=== PATIENT | male | born 1950 | race Caucasian/White ===

== ENCOUNTER 2017-02-12 14:38 | Inpatient (IN) | payer MEDICARE, OTHER ==
--- NOTE | ~2017-02-12 | CN ---
Consultation Report [place] [id number] [facility] [place]. [address] NAME: ENRICO VYAS JR : 52 STATUS : ADM IN [facility]#: [id number] AGE: 66 ADM/REG DATE : 02/12/17 MR#: [id number] REPORT SERV DATE: 02/13/17 DICTATED BY: DATE: REPORT STATUS : Draft TRANSCRIBED BY: MODL DATE: 02/13/17 CONSULTATION DATE OF CONSULTATION: 02/13/2017 CHIEF COMPLAINT/REASON FOR CONSULT: Abnormal EKG. PRIMARY RETENTION MANAGER: Tonny Ballesteros M.D. HISTORY OF PRESENT ILLNESS: Mr. Enrico Vyas is a very pleasant 66-year-old gentleman, who underwent pxczz-pte-vswy amputation on the left on 02/12/2017, for nonhealing left foot osteomyelitis and gangrene of the heel. He was recovering postoperatively. He has suffered from acute blood loss anemia and on telemetry monitoring, he had an episode of irregular wide-complex tachycardia 11 beats in duration. The patient was not symptomatic during this episode. He denies any chest pain or shortness of breath. He states that when this episode occur people came running into his room and he was asymptomatic. His and other family members at the bedside said he was pale. PAST MEDICAL HISTORY: 1. Severe peripheral vascular disease. 2. Chronic systolic heart failure, ejection fraction of 40% to 46%. Intolerant of MARLON inhibitors and angiotensin receptor blockers due to angioedema. 3. Ischemic cardiomyopathy. 4. Coronary artery disease, status post coronary bypass grafting in November 2010. 5. Hypertension. 6. Hyperlipidemia. 7. Morbid obesity. 8. Diabetes mellitus. SOCIAL HISTORY: The patient is a former smoker, but has not smoked in many years. He rarely drinks alcohol. He does not use extracurricular drugs. FAMILY HISTORY: Noncontributory. ALLERGIES: INCLUDE NOVOCAIN AND MARLON INHIBITORS. CURRENT MEDICATIONS: Include: 1. Norvasc 10 mg p.o. daily. 2. Aspirin 81 mg p.o. daily. 3. Atorvastatin 40 mg p.o. daily. 4. Clopidogrel 75 mg p.o. daily. 5. Enoxaparin. 6. Lasix 40 mg p.o. daily. 7. Gabapentin 300 mg p.o. daily. Consultation Report [place] [id number] [facility] [place]. [address] NAME: ENRICO VYAS JR : 52 STATUS : ADM IN PAT#: [id number] AGE: 66 ADM/REG DATE : 02/12/17 MR#: [id number] REPORT SERV DATE: 02/13/17 DICTATED BY: DATE: REPORT STATUS : Draft TRANSCRIBED BY: MODJean-Paul DATE: 02/13/17 8. Insulin. 9. Toradol. 10.Robaxin. 11.Metoprolol tartrate 25 mg p.o. b.i.d. 12.Levemir. REVIEW OF SYSTEMS: Performed and is negative except for dictated in HPI. PHYSICAL EXAMINATION: VITAL SIGNS: Temperature, the patient is a currently afebrile, 98.2. Pulses ranged between 63 and 68 beats per minute, respirations 14, oxygen saturations 96% on 2 L nasal cannula, blood pressure 138/62. GENERAL: Mr. Vyas is a 66-year-old gentleman, who appears much older than his stated age. NECK: There is no jugular venous distention. No carotid bruits. HEART: Regular rate and rhythm. Soft S1, S2. I could not appreciate murmurs, rubs, or gallops. LUNGS: There are slight end expiratory wheezes in all lung cardona and diminished lung volumes bilaterally. ABDOMEN: Obese and nontender. I could not appreciate renal bruits. I could not appreciate hepatosplenomegaly due to body habitus. EXTREMITIES: There is evidence of right great toe amputation on the right. I could not appreciate pitting edema. The left is brakh-mfj-cmvu amputation which is currently wrapped in a brace. NEUROLOGIC: I could not appreciate focal neurologic deficits. DATA: Hemoglobin 7.7, hematocrit 24.1, white blood cell count 5.8, platelet count is 156. Sodium 135, potassium 4.7, BUN 32, creatinine 1.48, glucose is 114. Cardiac troponin is less than 0.02. manager drug demonstrated a regular wide-complex tachycardia. This would be consistent with atrial fibrillation with aberrant conduction versus nonsustained ventricular tachycardia. An EKG performed at 5:01 p.m. demonstrated sinus rhythm with a first-degree AV block. There was evidence of a prior inferior myocardial infarction and poor R-wave progression. IMPRESSION, REPORT AND PLAN: 1. Wide-complex tachycardia, atrial fibrillation with aberrancy versus ventricular tachycardia. 2. Ischemic cardiomyopathy, ejection fraction between 40% and 46%. 3. Known history of coronary artery disease, status post coronary artery bypass grafting. 4. Hypertension. 5. Hyperlipidemia. 6. Diabetes mellitus. 7. Peripheral vascular disease. 8. The patient is a do not resuscitate status. Consultation Report [place] [id number] [place]. [address] NAME: ENRICO VYAS JR : 52 STATUS : ADM IN PAT#: [id number] AGE: 66 ADM/REG DATE : 02/12/17 MR#: [id number] REPORT SERV DATE: 02/13/17 DICTATED BY: DATE: REPORT STATUS : Draft TRANSCRIBED BY: MODL DATE: 02/13/17 RECOMMENDATIONS: 1. I would recommend continuing aspirin, Lipitor, Plavix and metoprolol. Plavix unchanged. We would change metoprolol to succinate and increase the dose to 50 mg twice per day. 2. We would consider amiodarone for recurrent arrhythmias. It has been my pleasure to participate in his care. TIERRA/NAA Alejandra Luis M.D. / [id number] CC: DO Tonny Vazquez M.D.
--- NOTE | ~2017-02-12 | CN ---
Consultation Report [facility] [address] [place]. [address] NAME: SUJATHA MORE JR : 52 STATUS : ADM IN [facility]#: [id number] AGE: 66 ADM/REG DATE : 02/12/17 MR#: [id number] REPORT SERV DATE: 02/13/17 DICTATED BY: DATE: REPORT STATUS : Draft TRANSCRIBED BY: MODL DATE: 02/13/17 DATE OF CONSULTATION: 02/13/2017 REASON FOR CONSULTATION: Medical management. IDENTIFYING DATA: CARDIOLOGY: Dr. Tonny Ballesteros. WOUND CARE: Done with the [facility], Nhung Parker NP. HISTORY OF PRESENT ILLNESS: This is a pleasant 66-year-old male who has had a longstanding history of left foot osteomyelitis and subsequent gangrene of the heel. The patient has had multiple attempts at revascularization and debridement per Wound Care and also has had a left femoral-popliteal bypass. The patient also just came off antibiotics for a 12-week period. He has been admitted to the hospital with pre-existing PICC line. The patient also has extensive history of peripheral vascular disease as well as peripheral arterial disease. The patient has a history of diabetes x17 years and is maintained on insulin. The patient states his last A1c was 7.2 two weeks ago. Average fasting blood sugar is between 90 and 150. He only checks his blood sugar in the morning and is on no sliding scale. The patient also has a history of hypertension as well as a CABG in 2010. The patient's history was obtained through careful interview with the patient coupled with review in [employer] [facility] PAST MEDICAL HISTORY: Tobacco abuse x30 years, stopped in 2002, hypertension, high cholesterol, coronary artery disease, peripheral vascular disease, PAD, osteomyelitis of the left heel, diabetes mellitus type 2 with insulin dependency, diabetic nephropathy, left thigh abscess in 10/2016, for which he received surgery by Dr. Urbina. HOME MEDICATIONS: Lantus 12 units every morning and 60 units at bedtime, Robaxin 750 mg daily, Lopressor 25 mg twice daily, Percocet 10/325 q.6 hours p.r.n. pain, potassium chloride 10 mEq every morning, vancomycin 1 g daily IV, amlodipine 10 mg daily, aspirin 81 mg daily, Lipitor 40 mg daily, Plavix 75 mg daily, Lasix 40 mg daily, Neurontin 300 mg twice daily, and NovoLog insulin 40 units with breakfast and with supper. ALLERGIES: THE PATIENT HAS ANAPHYLAXIS WITH MARLON INHIBITORS AND NOVOCAIN. SOCIAL HISTORY: The patient lives with significant other, walks with a cane. 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 He has history of tobacco abuse, has history also of alcohol use but states that he has not been drinking in the last several months. The patient denies illicit drug use. FAMILY HISTORY: Father has had several strokes, coronary artery disease, end-stage renal disease, for which he refused dialysis, and diabetes mellitus type 2. Mother had kidney Consultation Report [place] [id number] [place]. [address] NAME: SUJATHA MORE JR : 52 STATUS : ADM IN [facility]#: [id number] AGE: 66 ADM/REG DATE : 02/12/17 MR#: [id number] REPORT SERV DATE: 02/13/17 DICTATED BY: DATE: REPORT STATUS : Draft TRANSCRIBED BY: MODL DATE: 02/13/17 disease, diabetes mellitus type 2, and morbid obesity and is currently still alive. Siblings have no health issues that are known of. PAST SURGICAL HISTORY: Cataract extraction with intraocular lens implant in both eyes, CAB x4 in 2010, right leg stent, impacted wisdom teeth, right great toe amputation, multiple surgeries on both legs and feet per Vascular Surgery, multiple incision and drainages of both feet, left femoral-popliteal bypass. PHYSICAL EXAMINATION: VITAL SIGNS: Blood pressure is 147/67, O2 saturation is 95% on 2 L nasal cannula, respirations are 16, heart rate is 64, temp is 97.7. The patient's current pain status is a 5/10. States that he lives at 4 to 5 out of 10 at home. NEURO: Head is atraumatic, normocephalic. The patient is alert and oriented x3. Has bilateral upper lid ptosis. Cranial nerves 2 through 12 are grossly intact. Extraocular muscles are within normal limits. Mood is pleasant and appropriate. GENERAL: The patient is a morbidly obese male, resting in bed, in no acute distress. NECK: Neck is supple, trachea is midline. Neck veins are flat. No obvious thyromegaly or lymphadenopathy. ENT: Sclerae are not icteric, pupils are equal, round, reactive to light and accommodation. Mucous membranes are moist, nares are patent. Tongue is midline without deviation. Soft palate rises equally on phonation. CHEST: No pain with palpation. LUNGS: Lungs are clear to auscultation with decreased breath sounds in the bases, lung sounds are distant secondary to large body habitus. CARDIOVASCULAR: S1 and S2 with no obvious murmurs, rubs, or gallops. Carotids with no obvious bruits. ABDOMEN: Soft and nontender, with active bowel sounds. No palpable organomegaly. Last bowel movement was 02/12/2017. EXTREMITIES: The patient has Coke-bottle discoloration of his right lower extremity with a deformed right foot due to multiple surgeries. Foot has scale and scabbing on dorsum of foot, red areas on left thigh from recently healed wound. Dorsalis pedis pulse of the right lower extremity is 1+. Foot is warm. No significant edema or cyanosis. SKIN: Skin is warm and dry with no unusual rashes or skin lesions. Normal color and turgor. Surgical wound site dressing is clean, dry, and intact to left lower extremity with knee immobilizer. LABORATORY DATA: Sodium is 135, potassium is 4.7, chloride is 107, BUN is 32, creatinine is 1.48, GFR is 57, glucose is 114. Calcium is 8.7. WBCs 4.8, hemoglobin 6.2, hematocrit 19.1, and platelets 147. ASSESSMENT AND PLAN: 1. The patient has diabetes mellitus type 2, hyperglycemia. The patient is insulin dependent. Checks his blood sugars only in the morning and average fasting is between 90 and 150. Had A1c 2 weeks ago which was 7.2. Defers having diabetic education at Consultation Report [address] [address] NAME: SUJATHA MORE : 52 STATUS : ADM IN PAT#: [id number] AGE: 66 ADM/REG DATE : 02/12/17 MR#: [id number] REPORT SERV DATE: 02/13/17 DICTATED BY: DATE: REPORT STATUS : Draft TRANSCRIBED BY: NAA DATE: 02/13/17 this time. Feels confident that he is well controlled in his diet. Had A1c 2 weeks ago. We will be initiating sliding scale insulin level 2 in addition to the patient's home medication regimen with which he appears to be fairly well controlled at this time. 2. Acute anemia due to blood loss. The patient is to receive 2 units PRBCs. His current hemoglobin is 6.5. Preoperatively, his hemoglobin was 7.5. We will be obtaining a CBC in the morning. 3. Anemia of chronic disease. The patient denies that this is a trauma problem. The patient has had multiple frequent surgeries. Upon reviewing old medical records, the patient's hemoglobin has not been normal since 2010. We have ordered a TIBC, ferritin, serum iron, B12, folate, and vitamin D. 4. Acute kidney injury versus chronic kidney disease, stage 2 to 3. The patient is getting Toradol IV. The patient's baseline creatinine appears to be approximately 1.2. We are continuing his IV fluids x24 hours during his dosing of Toradol and getting a BMP in the morning. 5. Hypertension. The patient is on Lopressor and Norvasc for this. We are adding hydralazine p.r.n. The patient's current blood pressure is 150s/60s and appears to be well controlled. 6. Coronary artery disease. The patient is on a beta lamberto and calcium channel lamberto as well as aspirin and Lasix. 7. History of coronary artery bypass grafting x4. The patient is also on Plavix. The patient has hyperlipidemia, for which he is on a statin. 8. The patient has peripheral artery disease, peripheral vascular disease, for which he sees Vascular Surgery and is also on Plavix and aspirin. We would like to take the time to thank you for this consultation. We will continue to follow this patient with you while he is here. Please let us know if we could be of any further assistance. SLC/MODL Faiza Wallace NP / [id number] CC: DO Memo Vazquez M.D.
--- NOTE | ~2017-02-12 | OP ---
Record Of Operation [facility] [address] [place]. [address] NAME: SUJATHA MORE JR : 52 STATUS : ADM IN PAT#: [id number] AGE: 66 ADM/REG DATE : 02/12/17 MR#: [id number] REPORT SERV DATE: 02/13/17 DICTATED BY: TONNY JOYCE DATE: 02/12/17 REPORT STATUS : Draft TRANSCRIBED BY: MODL DATE: 02/12/17 DATE OF PROCEDURE: 02/12/2017 ATTENDING SURGEON: Tonny Joyce DO. PROCEDURE: Left below-knee amputation. PREOPERATIVE DIAGNOSIS: Left foot gangrene. POSTOPERATIVE DIAGNOSIS: Left foot gangrene. ESTIMATED BLOOD LOSS: 500 mL. ANESTHESIA: General. INDICATIONS FOR PROCEDURE: This is a pleasant 66-year-old gentleman who had a longstanding left foot osteomyelitis and subsequent gangrene of the heel. Multiple attempts at wound care and long-term care had been made in an attempt salvage the foot, but however the foot was deemed non-salvageable. Recommendation was made for left below-knee amputation. The procedure, risks, benefits, alternatives, and indications were discussed extensively with the patient. All questions were answered. Consent was signed and placed in the chart. PROCEDURE IN DETAIL: On 02/12/2017, the patient was taken to the operating theater and placed in supine position on the operating table. After the uneventful induction of general anesthesia the left leg was prepped and draped in the usual sterile fashion. A time-out was performed which identified the patient and proposed procedure to be performed. The entirety of the staff agreed and agreed to the proceed with the operation. An incision was made 14 cm distal to the tibial tuberosity anteriorly and carried down posteriorly. Next, a posterior flap was carried down to the ankle. The muscle was incised circumferentially and the tibia was dissected free circumferentially. It was transected with a bone saw. Dissection was carried down laterally onto the fibula and this too was circumferentially dissected free and transected. The remainder of the leg was amputated with an amputation knife. Hemostasis in the field was achieved with ligature as well as electrocautery. The wound was copiously irrigated with normal saline. The deep dermis was approximated with interrupted 2-0 Vicryl sutures and 0 Vicryl sutures. Skin was approximated with veronika. Sterile dry dressing was placed over this and the patient was placed in knee immobilizer. The patient was awakened from general anesthesia and taken to PACU in stable condition. There were no apparent intraoperative complications, and the patient tolerated the procedure well. All counts were correct at the conclusion of the operation. MICHAEL/NAA Tonny Joyce DO Record Of Operation [address] [address] NAME: SUJATHA MORE JR : 52 STATUS : ADM IN [facility]#: [id number] AGE: 66 ADM/REG DATE : 02/12/17 MR#: [id number] REPORT SERV DATE: 02/13/17 DICTATED BY: TONNY JOYCE DATE: 02/12/17 REPORT STATUS : Draft TRANSCRIBED BY: NAA DATE: 02/12/17 / [id number] CC: Tonny Joyce DO
[~2017-02-12 14:38] MED LIST: GLUCOPHAGE1000 MG PO; HUMALOGMIX SC; LOP25 PO; LOP50 PO; PERCOCET 10/3251 TAB PO; VANCO1P IV
[2017-02-12 19:29] LABS: HEMATOCRIT 23.3 % (40.0-51.0); HEMOGLOBIN 7.5 g/dL (13.6-17.8)
[2017-02-13 06:44] LABS: BASOPHILS 0.4 %; BASOPHILS ABSOLUTE 0.02 10/3/uL (0.0-0.16); EOSINOPHILS 2.3 %; EOSINOPHILS ABSOLUTE 0.11 10/3/uL (0.0-0.53); IMMATURE GRANULOCYTES 0.2 %; IMMATURE GRANULOCYTES ABSOLUTE 0.01 10/3/uL (0.0-0.11); LYMPHOCYTES 19.6 %; LYMPHOCYTES ABSOLUTE 0.95 10/3/uL (0.67-4.30); MEAN PLATELET VOLUME 9.3 fL (9.2-13.0); MONOCYTES 8.9 %; MONOCYTES ABSOLUTE 0.43 10/3/uL (0.21-1.20); NEUTROPHILS 68.6 %; NEUTROPHILS ABSOLUTE 3.32 10/3/uL (2.02-8.40); RED CELL COUNT 2.37 10/6/uL (4.7-6.1); WHITE BLOOD CELLS 4.8 10/3/uL (4.5-10.5)
[2017-02-13 06:45] LABS: HEMATOCRIT 19.1 % (40.0-51.0); HEMOGLOBIN 6.2 g/dL (13.6-17.8); MEAN CORPUS HGB CONC 32.5 g/dL (32.0-36.0); MEAN CORPUSCULAR HEMOGLOB 26.2 pg (26.0-34.0); MEAN CORPUSCULAR VOLUME 80.6 fL (80-100); PLATELET COUNT 147 10/3/uL (150-400); RBC DISTRIBUTION WIDTH 18.2 % (12.0-16.0)
[2017-02-13 06:46] LABS: MANUAL DIFF NO %
[2017-02-13 06:54] LABS: BUN (BLOOD UREA NITROGEN) 32 MG/DL (6-23); CALCIUM, SERUM 8.7 MG/DL (8.5-10.4); CHLORIDE, SERUM 107 MMOL/L (96-112); CO2 (CARBON DIOXIDE) 22 MMOL/L (24-34); CREATININE 1.48 MG/DL (0.70-1.30); GFR AFRICAN AMERICAN 57 ML/MIN (>=60); GFR NON AFRICAN AMERICAN 49 ML/MIN (>=60); GLUCOSE, SERUM 114 MG/DL (60-99); POTASSIUM, SERUM 4.7 MMOL/L (3.5-5.3); SODIUM, SERUM 135 MMOL/L (135-148)
[2017-02-13 17:02] LABS: BASOPHILS 0.2 %; BASOPHILS ABSOLUTE 0.01 10/3/uL (0.0-0.16); EOSINOPHILS 4.5 %; EOSINOPHILS ABSOLUTE 0.26 10/3/uL (0.0-0.53); IMMATURE GRANULOCYTES 0.3 %; IMMATURE GRANULOCYTES ABSOLUTE 0.02 10/3/uL (0.0-0.11); LYMPHOCYTES ABSOLUTE 0.93 10/3/uL (0.67-4.30); MEAN CORPUSCULAR HEMOGLOB 26.1 pg (26.0-34.0); MEAN CORPUSCULAR VOLUME 81.7 fL (80-100); MEAN PLATELET VOLUME 9.7 fL (9.2-13.0); MONOCYTES 7.4 %; MONOCYTES ABSOLUTE 0.43 10/3/uL (0.21-1.20); NEUTROPHILS 71.6 %; NEUTROPHILS ABSOLUTE 4.17 10/3/uL (2.02-8.40); PLATELET COUNT 156 10/3/uL (150-400); RBC DISTRIBUTION WIDTH 17.7 % (12.0-16.0); WHITE BLOOD CELLS 5.8 10/3/uL (4.5-10.5)
[2017-02-13 17:04] LABS: HEMATOCRIT 24.1 % (40.0-51.0); HEMOGLOBIN 7.7 g/dL (13.6-17.8); MANUAL DIFF NO %; RED CELL COUNT 2.95 10/6/uL (4.7-6.1)
[2017-02-13 17:19] LABS: CK-MB 9.5 NG/ML; CPK 822 U/L (0-200); TROPONIN I <0.02 NG/ML (<0.05)
[2017-02-13 17:20] LABS: CKMB INDEX (NOT ORD) 1.2
[2017-02-14 10:02] LABS: BASOPHILS 0.1 %; BASOPHILS ABSOLUTE 0.01 10/3/uL (0.0-0.16); EOSINOPHILS 4.8 %; EOSINOPHILS ABSOLUTE 0.34 10/3/uL (0.0-0.53); HEMOGLOBIN 7.4 g/dL (13.6-17.8); IMMATURE GRANULOCYTES 0.3 %; IMMATURE GRANULOCYTES ABSOLUTE 0.02 10/3/uL (0.0-0.11); LYMPHOCYTES ABSOLUTE 0.63 10/3/uL (0.67-4.30); MEAN CORPUS HGB CONC 32.2 g/dL (32.0-36.0); MEAN CORPUSCULAR HEMOGLOB 26.1 pg (26.0-34.0); MEAN PLATELET VOLUME 9.5 fL (9.2-13.0); MONOCYTES 6.1 %; MONOCYTES ABSOLUTE 0.43 10/3/uL (0.21-1.20); NEUTROPHILS 79.7 %; PLATELET COUNT 156 10/3/uL (150-400); RBC DISTRIBUTION WIDTH 17.9 % (12.0-16.0); RED CELL COUNT 2.84 10/6/uL (4.7-6.1)
[2017-02-14 10:07] LABS: MANUAL DIFF NO %
[2017-02-14 10:43] LABS: BUN (BLOOD UREA NITROGEN) 31 MG/DL (6-23); CALCIUM, SERUM 8.5 MG/DL (8.5-10.4); CHLORIDE, SERUM 103 MMOL/L (96-112); CO2 (CARBON DIOXIDE) 24 MMOL/L (24-34); CREATININE 1.26 MG/DL (0.70-1.30); FERRITIN 213 NG/ML (26-388); GFR AFRICAN AMERICAN 69 ML/MIN (>=60); GFR NON AFRICAN AMERICAN 59 ML/MIN (>=60); IRON BINDING CAPACITY 157 MCG/DL (250-450); IRON, SERUM 28 MCG/DL (35-150); POTASSIUM, SERUM 5.1 MMOL/L (3.5-5.3); SODIUM, SERUM 134 MMOL/L (135-148)
[2017-02-14 10:44] LABS: GLUCOSE, SERUM 227 MG/DL (60-99)
[2017-02-15 06:05] LABS: BASOPHILS 0.1 %; BASOPHILS ABSOLUTE 0.01 10/3/uL (0.0-0.16); EOSINOPHILS 4.2 %; EOSINOPHILS ABSOLUTE 0.28 10/3/uL (0.0-0.53); HEMATOCRIT 22.7 % (40.0-51.0); HEMOGLOBIN 7.5 g/dL (13.6-17.8); IMMATURE GRANULOCYTES 0.4 %; IMMATURE GRANULOCYTES ABSOLUTE 0.03 10/3/uL (0.0-0.11); LYMPHOCYTES 9.1 %; LYMPHOCYTES ABSOLUTE 0.61 10/3/uL (0.67-4.30); MEAN CORPUSCULAR HEMOGLOB 26.8 pg (26.0-34.0); MEAN CORPUSCULAR VOLUME 81.1 fL (80-100); MEAN PLATELET VOLUME 9.5 fL (9.2-13.0); MONOCYTES 8.8 %; MONOCYTES ABSOLUTE 0.59 10/3/uL (0.21-1.20); NEUTROPHILS 77.4 %; NEUTROPHILS ABSOLUTE 5.22 10/3/uL (2.02-8.40); PLATELET COUNT 137 10/3/uL (150-400); RBC DISTRIBUTION WIDTH 17.6 % (12.0-16.0); WHITE BLOOD CELLS 6.7 10/3/uL (4.5-10.5)
[2017-02-15 06:09] LABS: MANUAL DIFF NO %
[2017-02-15 06:18] LABS: CALCIUM, SERUM 8.1 MG/DL (8.5-10.4); CHLORIDE, SERUM 102 MMOL/L (96-112); CO2 (CARBON DIOXIDE) 21 MMOL/L (24-34); CREATININE 0.96 MG/DL (0.70-1.30); GFR AFRICAN AMERICAN 96 ML/MIN (>=60); GFR NON AFRICAN AMERICAN 83 ML/MIN (>=60); GLUCOSE, SERUM 196 MG/DL (60-99); POTASSIUM, SERUM 4.4 MMOL/L (3.5-5.3); SODIUM, SERUM 131 MMOL/L (135-148)
[2017-02-15 06:19] LABS: BUN (BLOOD UREA NITROGEN) 21 MG/DL (6-23)
[2017-02-16 05:52] LABS: BASOPHILS 0.2 %; BASOPHILS ABSOLUTE 0.01 10/3/uL (0.0-0.16); EOSINOPHILS 4.2 %; EOSINOPHILS ABSOLUTE 0.27 10/3/uL (0.0-0.53); HEMOGLOBIN 7.7 g/dL (13.6-17.8); IMMATURE GRANULOCYTES 0.5 %; IMMATURE GRANULOCYTES ABSOLUTE 0.03 10/3/uL (0.0-0.11); LYMPHOCYTES 15.3 %; LYMPHOCYTES ABSOLUTE 0.99 10/3/uL (0.67-4.30); MANUAL DIFF NO %; MEAN CORPUS HGB CONC 32.1 g/dL (32.0-36.0); MEAN CORPUSCULAR HEMOGLOB 26.4 pg (26.0-34.0); MEAN CORPUSCULAR VOLUME 82.2 fL (80-100); MEAN PLATELET VOLUME 9.9 fL (9.2-13.0); MONOCYTES 8.2 %; MONOCYTES ABSOLUTE 0.53 10/3/uL (0.21-1.20); NEUTROPHILS 71.6 %; NEUTROPHILS ABSOLUTE 4.66 10/3/uL (2.02-8.40); PLATELET COUNT 145 10/3/uL (150-400); RBC DISTRIBUTION WIDTH 17.8 % (12.0-16.0); RED CELL COUNT 2.92 10/6/uL (4.7-6.1); WHITE BLOOD CELLS 6.5 10/3/uL (4.5-10.5)
[2017-02-16 06:04] LABS: BUN (BLOOD UREA NITROGEN) 20 MG/DL (6-23); CALCIUM, SERUM 8.9 MG/DL (8.5-10.4); CHLORIDE, SERUM 104 MMOL/L (96-112); CO2 (CARBON DIOXIDE) 25 MMOL/L (24-34); GFR AFRICAN AMERICAN 91 ML/MIN (>=60); GFR NON AFRICAN AMERICAN 79 ML/MIN (>=60); POTASSIUM, SERUM 4.1 MMOL/L (3.5-5.3); SODIUM, SERUM 132 MMOL/L (135-148)
[2017-02-16 06:05] LABS: GLUCOSE, SERUM 101 MG/DL (60-99)
[2017-02-17 06:28] LABS: BASOPHILS 0.3 %; BASOPHILS ABSOLUTE 0.02 10/3/uL (0.0-0.16); EOSINOPHILS 5.3 %; EOSINOPHILS ABSOLUTE 0.34 10/3/uL (0.0-0.53); HEMOGLOBIN 8.8 g/dL (13.6-17.8); IMMATURE GRANULOCYTES 0.8 %; IMMATURE GRANULOCYTES ABSOLUTE 0.05 10/3/uL (0.0-0.11); LYMPHOCYTES 15.8 %; LYMPHOCYTES ABSOLUTE 1.01 10/3/uL (0.67-4.30); MEAN CORPUSCULAR HEMOGLOB 27.6 pg (26.0-34.0); MEAN CORPUSCULAR VOLUME 83.7 fL (80-100); MEAN PLATELET VOLUME 9.6 fL (9.2-13.0); MONOCYTES 8.4 %; MONOCYTES ABSOLUTE 0.54 10/3/uL (0.21-1.20); NEUTROPHILS 69.4 %; NEUTROPHILS ABSOLUTE 4.44 10/3/uL (2.02-8.40); PLATELET COUNT 162 10/3/uL (150-400); RBC DISTRIBUTION WIDTH 17.8 % (12.0-16.0); RED CELL COUNT 3.19 10/6/uL (4.7-6.1); WHITE BLOOD CELLS 6.4 10/3/uL (4.5-10.5)
[2017-02-17 06:29] LABS: HEMATOCRIT 26.7 % (40.0-51.0); MANUAL DIFF NO %
[2017-02-17 06:41] LABS: BUN (BLOOD UREA NITROGEN) 22 MG/DL (6-23); CALCIUM, SERUM 8.9 MG/DL (8.5-10.4); CHLORIDE, SERUM 104 MMOL/L (96-112); CO2 (CARBON DIOXIDE) 24 MMOL/L (24-34); CREATININE 1.07 MG/DL (0.70-1.30); GFR AFRICAN AMERICAN 84 ML/MIN (>=60); GFR NON AFRICAN AMERICAN 72 ML/MIN (>=60); GLUCOSE, SERUM 86 MG/DL (60-99); POTASSIUM, SERUM 4.3 MMOL/L (3.5-5.3); SODIUM, SERUM 135 MMOL/L (135-148)
[2017-05-20] MEDS ORDERED: PLAVIX PO (17:33)
[2017-05-20] MEDS ORDERED: ASAB PO (17:34)
[2017-05-20] MEDS ORDERED: NORV10 PO (17:35)
[2017-05-20] MEDS ORDERED: L40 PO (17:35)
[2017-05-20] MEDS ORDERED: LOP50 PO (17:35)
[2017-05-20] MEDS ORDERED: KLOR-CON 1010 MEQ PO (17:35)
[2017-05-20] MEDS ORDERED: LIPITOR40 PO (17:36)
[2017-05-20] MEDS ORDERED: NEUR300 PO (17:37)
[2017-05-20] MEDS ORDERED: PERCOCET 7.5/321 TAB PO (17:37)
[2017-05-20] MEDS ORDERED: METHOC750B PO (17:37)
[2017-05-20] MEDS ORDERED: LANTUSCART SC ×2 (17:38)
[2017-05-20] MEDS ORDERED: NOVOLOG SQ (17:38)
[2017-05-20] MEDS ORDERED: ALBUTEROL0.63 MG/3 INH (17:39)
[2017-05-20] MEDS ORDERED: VENTOLIN HFA INH (17:40)
== END 2017-02-17 14:18 | DRG 240 ==
LOC: SDC/OF 14:38 → 2SO 20:23
PROVIDERS: Nurse Practitioner Family; Student in an Organized Health Care Education/Training Program; Surgery Vascular Surgery
PROC: 0Y6J0Z1 Detachment at Left Lower Leg, High, Open Approach (ICD-10-PCS; principal; 2017-02-12 16:30)
PROC: 30233N1 Transfusion of Nonautologous Red Blood Cells into Peripheral Vein, Percutaneous Approach (ICD-10-PCS; 2017-02-13)
DX: E11.51 Type 2 diabetes mellitus with diabetic peripheral angiopathy without gangrene (principal); I47.2 Ventricular tachycardia; E11.22 Type 2 diabetes mellitus with diabetic chronic kidney disease; I50.22 Chronic systolic (congestive) heart failure; D62 Acute posthemorrhagic anemia; M86.9 Osteomyelitis, unspecified; I13.0 Hypertensive heart and chronic kidney disease with heart failure and stage 1 through stage 4 chronic kidney disease, or unspecified chronic kidney disease; I70.268 Atherosclerosis of native arteries of extremities with gangrene, other extremity; I48.0 Paroxysmal atrial fibrillation; E66.01 Morbid (severe) obesity due to excess calories; I25.5 Ischemic cardiomyopathy; E78.5 Hyperlipidemia, unspecified; Z66 Do not resuscitate; D50.9 Iron deficiency anemia, unspecified; I44.0 Atrioventricular block, first degree; D63.8 Anemia in other chronic diseases classified elsewhere; N18.3 Chronic kidney disease, stage 3 (moderate); Z95.1 Presence of aortocoronary bypass graft; Z88.8 Allergy status to other drugs, medicaments and biological substances; Z89.411 Acquired absence of right great toe; Z91.14 Patient's other noncompliance with medication regimen
CPT/HCPCS: 36415; 71010; 80048; 81001; 82306; 82550; 82553; 82607; 82728; 82746; 82962; 83540; 83550; 83735; 84484; 85014; 85018; 85025; 85610; 86850; 86900; 86901; 86920; 88307; 88311; 93005; 94640; 97110-GP; 97116-GP; 97161-GP; 97530-GP; A9270-GY; G8978-CL-GP; G8979-CJ-GP; J0690; J1170; J1885; J2250; J2270; J2405; J2710; J3010; J3370; P9016

== ENCOUNTER 2017-05-24 10:55 | Inpatient (IN) | payer MEDICARE, OTHER ==
[~2017-05-24] VITALS: Ht 188 cm; Wt 138.4 kg
--- NOTE | ~2017-05-24 | DS ---
Discharge Summary [facility] [address] [place]. [address] NAME: SUJATHA MORE JR : 52 STATUS : DIS IN PAT#: [id number] AGE: 67 ADM/REG DATE : 05/24/17 MR#: [id number] REPORT SERV DATE: 05/30/17 DICTATED BY: TONNY KIDD DATE: 05/29/17 REPORT STATUS : Draft TRANSCRIBED BY: MODL DATE: 05/29/17 ADMISSION DATE: 05/24/2017 DISCHARGE DATE: 05/29/2017 CHIEF COMPLAINT: Left stump infection. SURGERIES: On 05/24/2017, the patient underwent a left revision of a below-knee amputation for infected below-knee amputation stump. HISTORY AND PHYSICAL EXAMINATION: For complete admission history and physical exam, please refer to the hospital chart. HOSPITAL COURSE: This is a pleasant 67-year-old gentleman, who was admitted after revision of a left below-knee amputation. Infectious Disease was consulted over the hospital course, and they recommended continued IV antibiotics through a PICC line. He was found to have significant swelling postoperatively within the stump, and this was dressed by Wound Care with compression to the stump itself. By 05/29/2017, the stump was wrapped, and he was deemed stable for discharge to home with continued IV antibiotics. DISPOSITION: Discharged to home. DIET AND ACTIVITY: As tolerated. DISCHARGE MEDICATIONS: Antibiotics per Infectious Disease and Percocet for pain. [facility]/NAA Tonny Kidd DO / [id number] CC: Rosa Bolton M.D.
--- NOTE | ~2017-05-24 | OP ---
Record Of Operation [facility] [address] [place]. [address] NAME: SUJATHA MORE JR : 52 STATUS : ADM IN PAT#: [id number] AGE: 67 ADM/REG DATE : 05/24/17 MR#: [id number] REPORT SERV DATE: 05/27/17 DICTATED BY: MEMO VERONICA DATE: 05/27/17 REPORT STATUS : Draft TRANSCRIBED BY: MODL DATE: 05/27/17 DATE OF PROCEDURE: 05/24/2017 PREOPERATIVE DIAGNOSIS: Left below-knee amputation, exposed bone and open wound, failure to heal. POSTOPERATIVE DIAGNOSIS: Left below-knee amputation, exposed bone and open wound, failure to heal. PROCEDURE PERFORMED: Revision of left below-knee amputation with primary closure. ANESTHESIA: General. COMPLICATIONS: None. INDICATION FOR PROCEDURE: Secondary to this very pleasant 67-year-old gentleman presenting with evidence of nonhealing left below-knee amputation site. The patient is status post fall onto the site opening the wound and turning this into a chronic wound with multiple debridements and failure to heal. Recommendations were made for revisionary surgery to reconstruct the left below-knee segments. DETAILS OF PROCEDURE: The patient was brought to the operating room, placed in the supine position, prepped and draped in routine sterile fashion with attention to the left leg. General anesthesia was then induced, and a new incision was then created anteriorly and posteriorly wedging out a large piece of devitalized tissue. The surgical saw was then utilized to transect the tibia and the fibula in a 90-degree plane, and the major vascular structures were then clamped, ligated, and divided individually. Bleeding was arrested with cautery and suture ligature. The flap was then rotated to close the wound, and using multiple Prolene sutures and surgical clips, the wound was then closed in its entirety. A pressure dressing was then applied to the lower leg. The patient tolerated the procedure well. MARCUS/NAA Memo Veronica M.D. / [id number] CC: Rosa Bolton M.D.
--- NOTE | ~2017-05-24 | CN ---
Consultation Report [facility] [address] [place]. [address] NAME: SUJATHA MORE JR : 52 STATUS : ADM IN PAT#: [id number] AGE: 67 ADM/REG DATE : 05/24/17 MR#: [id number] REPORT SERV DATE: 05/26/17 DICTATED BY: ASHLEY RENO DATE: 05/26/17 REPORT STATUS : Draft TRANSCRIBED BY: MODL DATE: 05/26/17 MEDICAL CONSULTATION DATE OF CONSULTATION: 05/26/2017 REASON FOR CONSULTATION: Hiccups postop. HISTORY OF PRESENT ILLNESS: This is a 67-year-old white male, who has undergone revision of a sdkdz-wot-djsj amputation because of wound infection. He does have a longstanding history of adult-onset diabetes mellitus. He underwent general anesthesia and now has a postoperative hiccups Dr. Veronica noticed it on rounds. We were asked to see the patient for therapy of the hiccups. He has no chest pain. He has had no shortness of breath or cough. He does have a sore throat from irritation from the general endotracheal tube anesthesia. He has had no complaints. PAST MEDICAL HISTORY: He has history of hypertension. ALLERGIES: NOVOCAIN, MARLON INHIBITORS, AND ARBS. HOME MEDICATIONS: Include Ventolin, albuterol, amlodipine 10 mg daily, aspirin 81 mg daily, atorvastatin 40 mg at bedtime, clopidogrel 75 mg daily, gabapentin 300 mg daily, furosemide 40 mg daily, insulin NovoLog 30 units before each meal and Lantus 12 units subcu each morning and 16 units each evening, Robaxin 750 mg p.o. daily, metoprolol 50 mg p.o. b.i.d., Percocet 7.5 every four hours as needed for pain, and potassium chloride 10 mEq p.o. q.a.m. SOCIAL HISTORY: He is not . He has seen a local pharmacist. He attends [employer]. He does not smoke cigarettes or drink. He does have obstructive sleep apnea and cannot use CPAP. FAMILY HISTORY: Heart disease and diabetes run in the family. REVIEW OF SYSTEMS: No chest pain or shortness of breath. No cough. No fever, chills, night sweats, distress, or sore throat after the GET. He does have some distal edema in the right leg. He has not lost any weight recently. The remainder of the review of systems is negative. PHYSICAL EXAMINATION: GENERAL: Obese white male, in no acute distress. VITAL SIGNS: Blood pressure is 156/73 with a heart rate of 66, respiratory rate 18, afebrile. HEENT: EOMI. Sclerae clear. Conjunctivae pink. Mild proptosis. Pharynx is clear with Consultation Report [address] [place]. [address] NAME: SUJATHA MORE JR : 52 STATUS : ADM IN PAT#: [id number] AGE: 67 ADM/REG DATE : 05/24/17 MR#: [id number] REPORT SERV DATE: 05/26/17 DICTATED BY: ASHLEY RENO DATE: 05/26/17 REPORT STATUS : Draft TRANSCRIBED BY: NAA DATE: 05/26/17 small posterior opening. CHEST: Clear to A and P. HEART: Regular S1, S2 without murmur, gallop, or click. ABDOMEN: Soft, obese, nontender. No landmarks are felt. EXTREMITIES: Have 1+ edema in the right lower extremity. BKA left. SKIN: Without rash, ecchymosis, or bruising. No lymphatics. LABORATORY DATA: The blood sugar this morning was 100. His BMP shows creatinine 1.0, BUN 27, hemoglobin 8.7, hematocrit 25.6, down from 35.4 with a white count of 4.4. ASSESSMENT: Hiccups, likely postanesthesia complication. This should wear off over time. However, given p.o. two tablespoons of something granular would help. The patient has held his breath, done other mechanical and physical maneuvers such as thinking of the last rabbit that he saw. Chloraseptic spray may help the sore throat and numb the lower esophageal area with benzocaine to help relieve the hiccups. He denies any GERD symptoms, so we will not add any medication for that at this time. I would hold off on use of any antipsychotics or phenothiazines for the hiccups because of potential for worsened side effects. I am going to go ahead and check a troponin level and an EKG to ensure there is no myocardial ischemia, and we will be available for further questions if this problem should continue. MIMI/MODL Ashley Reno M.D. / [id number] CC: Rosa Bolotn M.D.
[~2017-05-24 10:55] MED LIST changes: +ALBUTEROL0.63 MG/3 INH; +ASAB PO; +KLOR-CON 1010 MEQ PO; +L40 PO; +LANTUSCART SC; +LIPITOR40 PO; +METHOC750B PO; +NEUR300 PO; +NORV10 PO; +NOVOLOG SQ; +PERCOCET 7.5/321 TAB PO; +PLAVIX PO; +VENTOLIN HFA INH
[2017-05-24 13:40] LABS: PROTIME (NOT ORD) 13.4 SEC (12.0-14.5)
[2017-05-24 13:46] LABS: BUN (BLOOD UREA NITROGEN) 21 MG/DL (6-23); CALCIUM, SERUM 8.7 MG/DL (8.5-10.4); CHLORIDE, SERUM 108 MMOL/L (96-112); CO2 (CARBON DIOXIDE) 26 MMOL/L (24-34); CREATININE 1.06 MG/DL (0.70-1.30); GFR AFRICAN AMERICAN 84 ML/MIN (>=60); GFR NON AFRICAN AMERICAN 73 ML/MIN (>=60); GLUCOSE, SERUM 102 MG/DL (60-99); POTASSIUM, SERUM 4.4 MMOL/L (3.5-5.3); SODIUM, SERUM 142 MMOL/L (135-148)
[2017-05-24 13:53] LABS: BASOPHILS 0.3 %; BASOPHILS ABSOLUTE 0.01 10/3/uL (0.0-0.16); EOSINOPHILS 11.4 %; EOSINOPHILS ABSOLUTE 0.38 10/3/uL (0.0-0.53); HEMOGLOBIN 11.7 g/dL (13.6-17.8); IMMATURE GRANULOCYTES 0.3 %; IMMATURE GRANULOCYTES ABSOLUTE 0.01 10/3/uL (0.0-0.11); LYMPHOCYTES 30.3 %; LYMPHOCYTES ABSOLUTE 1.01 10/3/uL (0.67-4.30); MEAN CORPUS HGB CONC 33.1 g/dL (32.0-36.0); MEAN CORPUSCULAR HEMOGLOB 29.8 pg (26.0-34.0); MEAN CORPUSCULAR VOLUME 90.1 fL (80-100); MEAN PLATELET VOLUME 10.2 fL (9.2-13.0); MONOCYTES 12.6 %; MONOCYTES ABSOLUTE 0.42 10/3/uL (0.21-1.20); NEUTROPHILS 45.1 %; PLATELET COUNT 102 10/3/uL (150-400); RED CELL COUNT 3.93 10/6/uL (4.7-6.1); WHITE BLOOD CELLS 3.3 10/3/uL (4.5-10.5)
[2017-05-24 13:54] LABS: HEMATOCRIT 35.4 % (40.0-51.0); MANUAL DIFF NO %
[2017-05-26 05:34] LABS: CHLORIDE, SERUM 106 MMOL/L (96-112); CO2 (CARBON DIOXIDE) 27 MMOL/L (24-34); GFR AFRICAN AMERICAN 90 ML/MIN (>=60); GFR NON AFRICAN AMERICAN 78 ML/MIN (>=60); GLUCOSE, SERUM 117 MG/DL (60-99); POTASSIUM, SERUM 4.1 MMOL/L (3.5-5.3); SODIUM, SERUM 138 MMOL/L (135-148)
[2017-05-26 05:35] LABS: BUN (BLOOD UREA NITROGEN) 27 MG/DL (6-23)
[2017-05-26 05:43] LABS: BASOPHILS 0 %; EOSINOPHILS 1.4 %; EOSINOPHILS ABSOLUTE 0.06 10/3/uL (0.0-0.53); IMMATURE GRANULOCYTES 0.2 %; IMMATURE GRANULOCYTES ABSOLUTE 0.01 10/3/uL (0.0-0.11); LYMPHOCYTES 17.2 %; LYMPHOCYTES ABSOLUTE 0.76 10/3/uL (0.67-4.30); MEAN CORPUSCULAR HEMOGLOB 32.5 pg (26.0-34.0); MEAN PLATELET VOLUME 10.1 fL (9.2-13.0); MONOCYTES 10.6 %; MONOCYTES ABSOLUTE 0.47 10/3/uL (0.21-1.20); NEUTROPHILS 70.6 %; NEUTROPHILS ABSOLUTE 3.12 10/3/uL (2.02-8.40); PLATELET COUNT 83 10/3/uL (150-400); WHITE BLOOD CELLS 4.4 10/3/uL (4.5-10.5)
[2017-05-26 05:44] LABS: HEMATOCRIT 25.6 % (40.0-51.0); HEMOGLOBIN 8.7 g/dL (13.6-17.8); MANUAL DIFF NO %; MEAN CORPUSCULAR VOLUME 95.5 fL (80-100); RED CELL COUNT 2.68 10/6/uL (4.7-6.1)
[2017-05-27 06:10] LABS: BUN (BLOOD UREA NITROGEN) 21 MG/DL (6-23); CALCIUM, SERUM 8.2 MG/DL (8.5-10.4); CHLORIDE, SERUM 106 MMOL/L (96-112); CO2 (CARBON DIOXIDE) 27 MMOL/L (24-34); CREATININE 0.89 MG/DL (0.70-1.30); GFR AFRICAN AMERICAN 103 ML/MIN (>=60); GFR NON AFRICAN AMERICAN 89 ML/MIN (>=60); GLUCOSE, SERUM 109 MG/DL (60-99); POTASSIUM, SERUM 4.2 MMOL/L (3.5-5.3); SODIUM, SERUM 139 MMOL/L (135-148)
[2017-05-27 06:31] LABS: BASOPHILS 0.3 %; BASOPHILS ABSOLUTE 0.01 10/3/uL (0.0-0.16); EOSINOPHILS 8.6 %; EOSINOPHILS ABSOLUTE 0.28 10/3/uL (0.0-0.53); HEMATOCRIT 26.7 % (40.0-51.0); HEMOGLOBIN 8.8 g/dL (13.6-17.8); IMMATURE GRANULOCYTES 0.3 %; IMMATURE GRANULOCYTES ABSOLUTE 0.01 10/3/uL (0.0-0.11); LYMPHOCYTES ABSOLUTE 0.81 10/3/uL (0.67-4.30); MANUAL DIFF NO %; MEAN CORPUSCULAR HEMOGLOB 30.1 pg (26.0-34.0); MEAN CORPUSCULAR VOLUME 91.4 fL (80-100); MEAN PLATELET VOLUME 9.9 fL (9.2-13.0); MONOCYTES 14.8 %; MONOCYTES ABSOLUTE 0.48 10/3/uL (0.21-1.20); NEUTROPHILS ABSOLUTE 1.65 10/3/uL (2.02-8.40); PLATELET COUNT 74 10/3/uL (150-400); RED CELL COUNT 2.92 10/6/uL (4.7-6.1); WHITE BLOOD CELLS 3.2 10/3/uL (4.5-10.5)
[2017-05-27 06:48] LABS: PLATELET ESTIMATE DEC (ADEQUATE)
[2017-05-27 06:49] LABS: POLYCHROMASIA 1+ (2-5/OIF) (0-1/OIF)
[2017-05-28 06:03] LABS: BUN (BLOOD UREA NITROGEN) 22 MG/DL (6-23); CALCIUM, SERUM 8.8 MG/DL (8.5-10.4); CHLORIDE, SERUM 100 MMOL/L (96-112); CO2 (CARBON DIOXIDE) 28 MMOL/L (24-34); GFR AFRICAN AMERICAN 90 ML/MIN (>=60); GFR NON AFRICAN AMERICAN 78 ML/MIN (>=60); POTASSIUM, SERUM 4.2 MMOL/L (3.5-5.3); SODIUM, SERUM 136 MMOL/L (135-148)
[2017-05-28 06:04] LABS: GLUCOSE, SERUM 203 MG/DL (60-99)
[2017-05-28 07:44] LABS: BASOPHILS 0 %; EOSINOPHILS ABSOLUTE 0.33 10/3/uL (0.0-0.53); HEMATOCRIT 28.5 % (40.0-51.0); HEMOGLOBIN 9.5 g/dL (13.6-17.8); IMMATURE GRANULOCYTES 0.3 %; IMMATURE GRANULOCYTES ABSOLUTE 0.01 10/3/uL (0.0-0.11); LYMPHOCYTES 22.4 %; LYMPHOCYTES ABSOLUTE 0.82 10/3/uL (0.67-4.30); MEAN CORPUS HGB CONC 33.3 g/dL (32.0-36.0); MEAN CORPUSCULAR VOLUME 89.9 fL (80-100); MEAN PLATELET VOLUME 10.4 fL (9.2-13.0); MONOCYTES 7.7 %; MONOCYTES ABSOLUTE 0.28 10/3/uL (0.21-1.20); NEUTROPHILS 60.6 %; NEUTROPHILS ABSOLUTE 2.22 10/3/uL (2.02-8.40); PLATELET COUNT 85 10/3/uL (150-400); RBC DISTRIBUTION WIDTH 15.6 % (12.0-16.0); RED CELL COUNT 3.17 10/6/uL (4.7-6.1); WHITE BLOOD CELLS 3.7 10/3/uL (4.5-10.5)
[2017-05-28 07:45] LABS: MANUAL DIFF NO %
[2017-05-29 05:56] LABS: BUN (BLOOD UREA NITROGEN) 21 MG/DL (6-23); CALCIUM, SERUM 8.5 MG/DL (8.5-10.4); CHLORIDE, SERUM 102 MMOL/L (96-112); CO2 (CARBON DIOXIDE) 30 MMOL/L (24-34); CREATININE 1.04 MG/DL (0.70-1.30); GFR AFRICAN AMERICAN 86 ML/MIN (>=60); GFR NON AFRICAN AMERICAN 74 ML/MIN (>=60); GLUCOSE, SERUM 193 MG/DL (60-99); SODIUM, SERUM 138 MMOL/L (135-148)
[2017-05-29 05:58] LABS: POTASSIUM, SERUM 4.3 MMOL/L (3.5-5.3)
[2017-05-29 06:11] LABS: BASOPHILS 0 %; EOSINOPHILS 6.3 %; EOSINOPHILS ABSOLUTE 0.19 10/3/uL (0.0-0.53); HEMATOCRIT 27.6 % (40.0-51.0); HEMOGLOBIN 9.2 g/dL (13.6-17.8); LYMPHOCYTES ABSOLUTE 0.72 10/3/uL (0.67-4.30); MEAN CORPUS HGB CONC 33.3 g/dL (32.0-36.0); MEAN CORPUSCULAR HEMOGLOB 29.2 pg (26.0-34.0); MEAN CORPUSCULAR VOLUME 87.6 fL (80-100); MEAN PLATELET VOLUME 10.4 fL (9.2-13.0); MONOCYTES ABSOLUTE 0.33 10/3/uL (0.21-1.20); NEUTROPHILS 58.7 %; NEUTROPHILS ABSOLUTE 1.76 10/3/uL (2.02-8.40); PLATELET COUNT 73 10/3/uL (150-400); RBC DISTRIBUTION WIDTH 15.7 % (12.0-16.0); RED CELL COUNT 3.15 10/6/uL (4.7-6.1)
[2017-05-29 06:12] LABS: MANUAL DIFF NO %
[2017-05-29 06:18] LABS: PLATELET ESTIMATE DEC (ADEQUATE)
[2017-05-29 06:23] LABS: TEARDROP SHAPED RBCS OCC (0-2/OIF)
== END 2017-05-29 15:41 | disposition home health service (06) | DRG 475 ==
LOC: ENRESERVTM → ENRESERVDT → ENRESERV → 2SO 10:55 → SDC/OF 10:55 → PACU 17:09 → 2SO 20:23
PROVIDERS: Internal Medicine; Internal Medicine Infectious Disease; Specialist
PROC: 0Y6G0ZZ Detachment at Left Knee Region, Open Approach (ICD-10-PCS; principal; 2017-05-24 15:00)
PROC: 02HV33Z Insertion of Infusion Device into Superior Vena Cava, Percutaneous Approach (ICD-10-PCS; 2017-05-28)
PROC: 4A02X4A Measurement of Cardiac Electrical Activity, Guidance, External Approach (ICD-10-PCS; 2017-05-28)
DX: T87.44 Infection of amputation stump, left lower extremity (principal); D61.818 Other pancytopenia; E11.51 Type 2 diabetes mellitus with diabetic peripheral angiopathy without gangrene; T87.81 Dehiscence of amputation stump; Z99.81 Dependence on supplemental oxygen; R06.6 Hiccough; I10 Essential (primary) hypertension; G47.33 Obstructive sleep apnea (adult) (pediatric); Y83.5 Amputation of limb(s) as the cause of abnormal reaction of the patient, or of later complication, without mention of misadventure at the time of the procedure; Y92.9 Unspecified place or not applicable; Z88.5 Allergy status to narcotic agent; Z88.8 Allergy status to other drugs, medicaments and biological substances; Z79.4 Long term (current) use of insulin; Z82.49 Family history of ischemic heart disease and other diseases of the circulatory system
CPT/HCPCS: 36569; 71010; 80048; 81001; 82962; 84484; 85025; 85610; 87015; 87070; 87075; 87077; 87102; 87116; 87186; 87205; 88304; 88307; 88311; 93005; 94640; A9270-GY; C1751; J0690; J0878; J1170; J2250; J2405; J2543; J3010; J3370